=== PATIENT | male | born 1975 | race Two or more races ===

== ENCOUNTER 2022-10-31 11:15 | Inpatient (IN) | payer OTHER ==
[~2022-10-31] VITALS: Ht 175.3 cm; Wt 127.0 kg
[~2022-10-31 11:15] MED LIST: ALDACTONE50 MG; AVAPRO300 MG; LISINOPRIL40 MG; VERELAN240 MG
[2022-10-31] MEDS ORDERED: LOTREL 10-40 M1 EACH PO (13:06)
[2022-10-31] MEDS ORDERED: INDAPAMIDE2.5 MG PO (13:07)
[2022-10-31] MEDS ORDERED: CARVEDILOL25 MG (13:07)
[2022-10-31] MEDS ORDERED: ALDACTONE25 MG PO (13:08)
[2022-10-31] MEDS ORDERED: FENOFIBRATE50 MG PO (13:08)
[2022-10-31] MEDS ORDERED: LIPITOR20 MG PO (13:08)
[2022-11-08] MEDS ORDERED: TRAM1TAB98 PO (12:39)
[2022-11-08] MEDS ORDERED: INTESTINEX680 M1 PO (12:39)
[2022-11-08] MEDS ORDERED: PEPCID AC20 MG PO (12:39)
== END 2022-11-08 13:52 | disposition home or self-care (01) | DRG 331 ==
LOC: SURH 11-05 06:10 → O/R 11-05 06:10 → SURH 11-05 09:00
PROVIDERS: ADMIT Surgery; ATTEND Surgery
PROC: 0DBP4ZZ Excision of Rectum, Percutaneous Endoscopic Approach (ICD-10-PCS; 2022-11-05)
PROC: 07BC4ZZ Excision of Pelvis Lymphatic, Percutaneous Endoscopic Approach (ICD-10-PCS; 2022-11-05)
PROC: 0DTU4ZZ Resection of Omentum, Percutaneous Endoscopic Approach (ICD-10-PCS; 2022-11-05)
PROC: 0DJD8ZZ Inspection of Lower Intestinal Tract, Via Natural or Artificial Opening Endoscopic (ICD-10-PCS; 2022-11-05)
PROC: 4A12X4Z Monitoring of Cardiac Electrical Activity, External Approach (ICD-10-PCS; 2022-11-05)
PROC: 3E0F7SF Introduction of Other Gas into Respiratory Tract, Via Natural or Artificial Opening (ICD-10-PCS; 2022-11-05)
PROC: 0DTN4ZZ Resection of Sigmoid Colon, Percutaneous Endoscopic Approach (ICD-10-PCS; principal; 2022-11-05 09:00)
DX: C18.7 Malignant neoplasm of sigmoid colon (principal); R59.0 Localized enlarged lymph nodes; R19.4 Change in bowel habit; R93.5 Abnormal findings on diagnostic imaging of other abdominal regions, including retroperitoneum; I49.8 Other specified cardiac arrhythmias; G47.30 Sleep apnea, unspecified; I11.9 Hypertensive heart disease without heart failure

== ENCOUNTER 2022-12-06 06:55 | Day surgery (SDC) | payer OTHER ==
[~2022-12-06] VITALS: Ht 160 cm; Wt 121.1 kg
[~2022-12-06 06:55] MED LIST changes: +ALDACTONE25 MG PO; +CARVEDILOL25 MG; +FENOFIBRATE50 MG PO; +INDAPAMIDE2.5 MG PO; +INTESTINEX680 M1 PO; +LIPITOR20 MG PO; +LOTREL 10-40 M1 EACH PO; +PEPCID AC20 MG PO; +TRAM1TAB98 PO
[2022-12-06] MEDS ORDERED: TRAM1TAB98 PO (10:09)
== END 2022-12-06 13:30 | disposition home or self-care (01) ==
LOC: CIR.AMB 06:55
PROVIDERS: ATTEND Surgery
DX: C18.7 Malignant neoplasm of sigmoid colon (principal); R19.4 Change in bowel habit; R93.5 Abnormal findings on diagnostic imaging of other abdominal regions, including retroperitoneum

== ENCOUNTER 2024-12-14 05:43 | Day surgery (SDC) | payer OTHER ==
[2024-12-04 12:08] LABS: BASO % 0.8 % (0.1-1.2); EOS # 0.17 (0.04-0.54); EOS % 1.8 % (0.7-7.0); HEMATOCRIT 42.4 % (40.1-51.0); HEMOGLOBIN 13.9 g/dL (13.7-17.5); LYMPH # 2.31 (1.18-3.74); LYMPH % 24.5 % (19.3-53.1); MONO # 0.67 (0.24-0.82); MONO % 7.1 % (4.7-12.5); NEUT # 6.16 (1.56-6.13); NEUT % 65.4 % (34.0-71.1); PLATELET COUNT 263 K/uL (163-369); RED BLOOD COUNT 4.97 M/uL (4.63-6.08); RED CELL DISTRIBUTION WIDTH 13.2 % (11.6-14.4)
[2024-12-04 12:09] LABS: PH,URINE 5.5 (5.0-8.0); URINE APPEARANCE Clear; URINE BILIRRUBIN Negative (NEGATIVE); URINE BLOOD Negative; URINE COLOR Yellow; URINE GLUCOSE Negative (NEGATIVE); URINE KETONE Negative (NEGATIVE); URINE LEUKOCYTE Negative; URINE NITRATE Negative; URINE PROTEIN Negative (NEGATIVE)
[2024-12-04 12:13] LABS: URINE EPITHELIAL CELLS 2.5 uL (0.0-38.8); URINE WBC 2.2 uL (0.0-23.2)
[2024-12-04 12:19] LABS: URINE BACTERIA 3.6 uL (0.0-1933)
[2024-12-04 12:28] LABS: PROTHROMBIN TIME 10.9 SECONDS (9.0-11.5)
[2024-12-04 12:50] LABS: ALBUMIN 3.7 gm/dL (3.4-5.0); BILIRUBIN TOTAL 0.51 mg/dL (0.3-1.2); CALCIUM 9.8 mg/dL (8.5-10.1); CREATININE SERUM 1.02 mg/dL (0.70-1.30); POTASSIUM 3.75 mEq/L (3.5-5.1); TOTAL PROTEIN 7.7 gm/dL (6.4-8.2)
[~2024-12-14 05:43] MED LIST changes: +OMEPRAZOLE-BIC1 EAC1 PO
[2024-12-14] MEDS ORDERED: BUPIVACAINE HCL/MPF 0.5% 30ML VIAL ONE (06:58)
[2024-12-14] MEDS ORDERED: LIDOCAINE HCL 1%/EPINEPHRINE 20ML VIAL IJ ONE (06:58)
[2024-12-14] MEDS ORDERED: CEFAZOLIN SODIUM 1,000 MG VIAL ONE (07:01)
[2024-12-14] MEDS ORDERED: TRAM1TAB98 PO (09:08)
== END 2024-12-14 10:05 | disposition home or self-care (01) ==
LOC: CIR.AMB 05:43
PROVIDERS: ATTEND Surgery
DX: T82.594A Other mechanical complication of infusion catheter, initial encounter (principal); C18.7 Malignant neoplasm of sigmoid colon; Z91.013 Allergy to seafood